=== PATIENT | male | born 1975 | race Hispanic/Latino ===

== ENCOUNTER → 2018-08-22 | Outpatient (CLI) | payer OTHER ==
[~2018-08-22] MED LIST: ACET325T51 PO; ASPI-1181 PO; ATOR40TA71 PO; CARV3.12 PO; CHOL200012 PO; CINA60TA PO; EPOE10I IVP; FOLI1CAP2 PO; MIDO10TA PO; PANT40TA25 PO; POTA-79 PO; SEVE800 PO
== END | disposition home or self-care (01) ==
LOC: RAH 07:41
PROVIDERS: ATTEND Surgery Trauma Surgery
DX: E11.22 Type 2 diabetes mellitus with diabetic chronic kidney disease (principal); N18.6 End stage renal disease; K76.0 Fatty (change of) liver, not elsewhere classified; M79.81 Nontraumatic hematoma of soft tissue; M79.89 Other specified soft tissue disorders; Z79.899 Other long term (current) drug therapy; Z79.4 Long term (current) use of insulin
CPT/HCPCS: 71046; 76700; 93970